=== PATIENT | male | born 1955 | race Caucasian/White ===

== ENCOUNTER 2024-07-22 09:45 | Outpatient (RCR) | payer MEDICARE, SELFPAY ==
--- NOTE | 2024-06-10 16:39 | PTOPEVAL1 ---
Assessment and note entered by Lurdes Logan, PT Evaluation Information Assessment Status Evaluation Diagnosis pain in left knee ICD-10 Condition Codes (PT) Pain in left knee M25.562,Weakness R53.1 Onset 3 years Subjective Information Pt reports knee has been bothering him for multiple years. States has arthritis in the knee and practitioner's opinion was therapy may help. History of left lower leg fracture down around the ankle ~ 10 years ago. Can hear the knee pop usually in certain positions usually with somewhat bent position. Usually with picking up items from a bent position, walking up and down steps Reported Pain Level Pain Score 0: Self Report Additional Pain Score Comments Reports pain to the outside of the knee cap Assessment PT Clinical Summary Pt presents with complaints of left knee pain with weight bearing flexion. This is especially with squatting and going up and down steps. States no increased pain with walking and when he does have pain though it is rated as severe at the time, is instantaneous and resolves immediately. Does not have lingering pain nor does he have resting pain usually. Pt demo's normal active ROM of the left knee, negative on all special tests for soft tissue structural abnormalities. However pt does demo severe crepitus with resisted knee extension and increased pain, limiting his strength output. Pt also demonstrates decreased flexibility of multiple muscle groups and a laterally deviated patella. Discussed findings with patient to as well as additional options related to progression of his arthritis. Pt will benefit from physical therapy to improved flexibility and strength to improve stress on knee and improve functional activity with less pain. Plan of Care Interventions Electrical Stimulation,Hot Pack/Cold Pack,Manual Therapy,Patient/Caregiver Educati,Therapeutic Activities,Therapeutic Exercise,Self-Care/Home Management,Ultrasound Other Interventions IASTM, taping PT Services Indicated Yes Treatment Frequency and 1-2x weekly x 8 visits Duration These treatments will address the objective and functional deficits as defined above. The patient will be advanced safely and appropriately in order for the patient to progress towards his/her prior level of function. Additional exercises will be introduced and as well as a comprehensive home exercise program upon d
--- NOTE | 2024-06-10 16:39 | OPREHPOC ---
Outpatient Therapy Plan of Care This is a Multidisciplinary Plan of Care that may contain components documented by all disciplines (PT, OT, and ST.) PT Problem 1 PT Problem #1 Knowledge Deficit PT Goal 1 Goal / Goal Update Pt will be independent in HEP Pt will verbalize understanding of diagnosis and prognosis Target Visit 8 PT Problem 2 PT Problem #2 Pain PT Goal 1 Goal / Goal Update Pt will report greatest pain level at 6/10 or less to improve ADLs and activities Target Visit 4 PT Goal 2 Goal / Goal Update Pt will report greatest pain level at 3/10 or less to improve ADLs and activities Target Visit 8 PT Problem 3 PT Problem #3 Impaired Strength PT Goal 1 Goal / Goal Update Pt will demo LLE strength of 4/5 or greater in tested planes Target Visit 8 PT Problem 4 PT Problem #4 Impaired Flexibility PT Goal 1 Goal / Goal Update Pt will demo quads flexibility of 110 or greater Target Visit 8 PT Goal 2 Goal / Goal Update Pt will demo only mild ITB flexibility deficit Target Visit 8
--- NOTE | 2024-07-22 10:34 | PTOPDC ---
Assessment and note entered by Lurdes Logan, PT Evaluation Information Assessment Status Discharge Diagnosis pain in left knee ICD-10 Condition Codes (PT) Pain in left knee M25.562,Weakness R53.1 Onset 3 years Subjective Information Pt states he had a bust day yesterday with a lot of standing, states knee did fine. Popping in the knee with the bent positions seems to be doing better. States can bend over and pick things up easier but still has popping. Reported Pain Level Pain Score 4: Self Report Assessment PT Clinical Summary Pt has attended therapy 1x weekly for 8 visits. He has made minimal progress with therapy in all aspects. Though he admits having some less popping in the knee, some greater ease with picking up items, he rates himself at 24% disability (down from 29), cont to have pain up to 7/10 (down from 8/10) same strength and range grossly compared to evaluation. Pt cont to demo significant crepitus and discomfort especially with resistance testing of knee extension. Pt would likely benefit from orthopedic consult for further evaluation of knee pain options. Plan of Care PT Services Indicated No
== END 2024-07-22 10:36 | disposition home or self-care (01) ==
LOC: ANHHIPT 09:45
PROVIDERS: PCP Physician Assistant Medical; Visit Provider Physician Assistant Medical
DX: M25.562 Pain in left knee (principal)
CPT/HCPCS: 97014; 97035; 97110; 97112; 97140; 97161; 97750; G0283